=== PATIENT | female | born 1955 | race Caucasian/White ===

== ENCOUNTER 2017-12-30 16:02 | Emergency (ER) | payer OTHER ==
[~2017-12-30] VITALS: Ht 167.6 cm; Wt 37.0 kg
[~2017-12-30 16:02] MED LIST: ACET325 PO; ACET325S PR; ACET500 PO; ACETAMINOPHEN500 MG PO; ALBUIS INH; AMIT25; AMOCLA500 PO; ASPI81CH PO; ATOR20 PO; Acetaminophen-1 EAC2 PO; BELPTAB; CALGLU500; CEPH500 PO; CHOL10002 PO; CIPR500 PO; CLIN150 PO; CLON2; CLON2 PO; CODACE30 PO; Clonazepam2 MG PO; Cyclobenzaprine5 MG PO; DICL25ER PO; DICLOFENAC 50MG; DIPATR PO; DIPH50; DIPH50 PO; DOC250 PO; DOCU100 PO; DOXY100 PO; ESOM20 PO; EYE DROPS; FLUO10 PO; GABA100 PO; HYDACE10; HYDACE10 PO; HYDACE5 PO; HYDACE7.5; HYDACE7.5 PO; HYOS.125 SL; HYOS.125L; K-Dur20 MEQ PO; Keflex500 MG PO; Klonopin1 MG PO; LEVE500 PO; LEVFLO250 PO; LEVFLO500 PO; LEVO750; LIDO5TP TOP; LOPE2C PO; META800 PO; METO10; METO10 PO; METR250 PO; METR500 PO; MIRT30ST; Mobic7.5 MG PO; NORT10; Norco 5-325 Ta1 EACH PO; OLAN5 PO; OMEP20ER PO; ONDA4ODT MM; OXYC10ER; PANT40 PO; PHENY100ER; PHENY100ER PO; PHENY125EA PO; POTCHL20ER; POTCHL20ER PO; PREG75; Phenytoin Sodi100 MG PO; Prozac20 MG PO; Prozac40 MG PO; QUET25 PO; RANI150; RANI150 PO; RISP1 PO; RISP2 PO; RISP3 PO; RXHYDACE PO; RXHYOS.125 PO; SACC250C PO; SENN187 PO; SERT25 PO; SIME80CH PO; SUCR1 PO; SULTRIDS PO; TRAM50 PO; TRAZ50 PO; [UNRECOGNIZED DRUG - REMARK]; [UNRECOGNIZED DRUG - REMARK]; [UNRECOGNIZED DRUG - REMARK] PO
[2017-12-30 16:51] LABS: BASOPHILS ABSOLUTE AUTO 0.08 K/mm3 (0.00-0.23); BASOPHILS PERCENT AUTO 1 % (0-2); EOSINOPHILS PERCENT AUTO 1 % (0-6); Hemoglobin 14.2 g/dL (11.5-16.0); IMMATURE GRAN ABSOLUTE AUTO 0.05 K/mm3 (0.00-0.10); IMMATURE GRAN PERCENT AUTO 1 % (0-1); LYMPHOCYTES ABSOLUTE AUTO 2.76 K/mm3 (0.84-5.20); LYMPHOCYTES PERCENT AUTO 28 % (21-46); MONOCYTES ABSOLUTE AUTO 0.83 K/mm3 (0.16-1.47); MONOCYTES PERCENT AUTO 8 % (4-13); Mean Corpuscular HGB 32.3 pg (26.0-34.0); Mean Corpuscular Volume 98 fL (80-100); NEUTROPHILS ABSOLUTE AUTO 6.05 K/mm3 (1.96-9.15); NEUTROPHILS PERCENT AUTO 61 % (41-73); Platelet Count 402 K/mm3 (150-400); RDW Coefficient Variation 13.6 % (11.7-14.2); RDW Standard Deviation 49.2 fL (35.1-46.3); White Blood Cell Count 9.87 K/mm3 (4.00-11.30)
[2017-12-30] MEDS ORDERED: FLUO10 PO (16:57)
[2017-12-30] MEDS ORDERED: CLON1 PO (16:58)
[2017-12-30 17:10] LABS: Alanine Aminotransfer (ALT/SGP 54 U/L (12-78); Albumin, Blood 3.5 g/dL (3.4-5.0); Albumin/Globulin Ratio 0.9 (0.8-1.8); Alk Phos 161 U/L (50-136); Anion Gap 9 mmol/L (6-16); Aspartate Aminotrans (AST/SGOT 47 U/L (12-37); Bilirubin, Total 0.1 mg/dL (0.1-1.0); Blood Urea Nitrogen 16 mg/dL (8-24); CO2, Blood 27 mmol/L (21-32); Calcium, Blood 9.2 mg/dL (8.5-10.1); Chloride, Blood 104 mmol/L (98-108); Creatinine, Blood 0.62 mg/dL (0.40-1.00); Glomerular Filtration Rate >60 (60-); Glucose, Blood 68 mg/dL (70-99); Potassium, Blood 3.5 mmol/L (3.5-5.5); Sodium, Blood 140 mmol/L (136-145); Total Protein, Blood 7.5 g/dL (6.4-8.2)
== END 2017-12-30 17:19 | disposition home or self-care (01) ==
LOC: ER 16:02
PROVIDERS: Physician Assistant
DX: F41.9 Anxiety disorder, unspecified (principal); Z76.0 Encounter for issue of repeat prescription; J44.9 Chronic obstructive pulmonary disease, unspecified; I67.1 Cerebral aneurysm, nonruptured; R56.9 Unspecified convulsions
CPT/HCPCS: 36415; 80053; 85025; 99283

== ENCOUNTER 2018-01-15 09:41 | Emergency (ER) | payer OTHER ==
[~2018-01-15] VITALS: Ht 167.6 cm; Wt 36.3 kg
[~2018-01-15 09:41] MED LIST changes: +CLON1 PO
[2018-01-15 10:39] LABS: BASOPHILS ABSOLUTE AUTO 0.06 K/mm3 (0.00-0.23); BASOPHILS PERCENT AUTO 1 % (0-2); EOSINOPHILS ABSOLUTE AUTO 0.09 K/mm3 (0.00-0.68); EOSINOPHILS PERCENT AUTO 1 % (0-6); Hematocrit 42.6 % (33.0-51.0); Hemoglobin 13.9 g/dL (11.5-16.0); IMMATURE GRAN ABSOLUTE AUTO 0.04 K/mm3 (0.00-0.10); IMMATURE GRAN PERCENT AUTO 1 % (0-1); LYMPHOCYTES PERCENT AUTO 22 % (21-46); MONOCYTES ABSOLUTE AUTO 0.65 K/mm3 (0.16-1.47); MONOCYTES PERCENT AUTO 8 % (4-13); Mean Corpuscular HGB 31.7 pg (26.0-34.0); Mean Corpuscular HGB Conc 32.6 g/dL (31.5-36.5); Mean Corpuscular Volume 97 fL (80-100); Mean Platelet Volume 9.2 fL (9.1-12.4); NEUTROPHILS ABSOLUTE AUTO 5.62 K/mm3 (1.96-9.15); NEUTROPHILS PERCENT AUTO 68 % (41-73); Platelet Count 376 K/mm3 (150-400); RDW Coefficient Variation 14.3 % (11.7-14.2); Red Blood Cell Count 4.39 M/mm3 (3.80-5.20); White Blood Cell Count 8.26 K/mm3 (4.00-11.30)
[2018-01-15 11:09] LABS: Alanine Aminotransfer (ALT/SGP 53 U/L (12-78); Albumin, Blood 3.2 g/dL (3.4-5.0); Albumin/Globulin Ratio 0.8 (0.8-1.8); Alk Phos 178 U/L (50-136); Anion Gap 5 mmol/L (6-16); Aspartate Aminotrans (AST/SGOT 41 U/L (12-37); Bilirubin, Total 0.3 mg/dL (0.1-1.0); Blood Urea Nitrogen 7 mg/dL (8-24); Bun/Creatinine Ratio 13.3 (12.0-20.0); CO2, Blood 28 mmol/L (21-32); Calcium, Blood 8.2 mg/dL (8.5-10.1); Chloride, Blood 108 mmol/L (98-108); Creatinine, Blood 0.53 mg/dL (0.40-1.00); Globulin, Blood 4.2 g/dL (2.2-4.0); Glomerular Filtration Rate >60 (60-); Glucose, Blood 82 mg/dL (70-99); Potassium, Blood 3.8 mmol/L (3.5-5.5); Sodium, Blood 141 mmol/L (136-145); Total Protein, Blood 7.4 g/dL (6.4-8.2)
[2018-01-15 11:42] LABS: Source, Urine Clean Catch
[2018-01-15 11:45] LABS: Bilirubin, Urine Neg (Neg); Blood, Urine 4+ (Neg); Glucose Qualitative, Urine Neg (Neg); Ketones, Urine Neg (Neg); Leukocyte Esterase, Urine Neg (Neg); Nitrite, Urine Neg (Neg); Protein, Urine Neg (Neg); Urobilinogen, Urine NORM (Normal)
[2018-01-15 11:56] LABS: Appearance, Urine Clear (Clear); Color, Urine Yellow (P-Yellow)
[2018-01-15] MEDS ORDERED: DIPH50 PO (11:56)
[2018-01-15] MEDS ORDERED: OLAN10 (11:57)
[2018-01-15 11:58] LABS: White Blood Cells, Urine 0-2 /hpf (0-5)
[2018-01-15 11:59] LABS: Bacteria Few /hpf; Squamous Epithelial Cells Few /hpf (Few)
[2018-01-15] MEDS ORDERED: Zofran Odt4 MG SL (12:58)
== END 2018-01-15 13:09 | disposition home or self-care (01) ==
LOC: ER 09:41
PROVIDERS: Emergency Medicine
DX: R10.9 Unspecified abdominal pain (principal); K08.89 Other specified disorders of teeth and supporting structures; T43.225A Adverse effect of selective serotonin reuptake inhibitors, initial encounter; F17.200 Nicotine dependence, unspecified, uncomplicated; Z88.6 Allergy status to analgesic agent; G40.909 Epilepsy, unspecified, not intractable, without status epilepticus; M41.9 Scoliosis, unspecified; Z79.899 Other long term (current) drug therapy
CPT/HCPCS: 36415; 80053; 81001; 83690; 85025; 96374; 99283; J2405

== ENCOUNTER → 2018-01-20 | Outpatient (CLI) | payer OTHER ==
[~2018-01-20] MED LIST changes: +OLAN10; +Zofran Odt4 MG SL
[2018-01-20 16:29] LABS: BASOPHILS PERCENT AUTO 1 % (0-2); EOSINOPHILS ABSOLUTE AUTO 0.12 K/mm3 (0.00-0.68); EOSINOPHILS PERCENT AUTO 1 % (0-6); Hematocrit 43.6 % (33.0-51.0); Hemoglobin 14.7 g/dL (11.5-16.0); IMMATURE GRAN ABSOLUTE AUTO 0.02 K/mm3 (0.00-0.10); IMMATURE GRAN PERCENT AUTO 0 % (0-1); LYMPHOCYTES ABSOLUTE AUTO 2.27 K/mm3 (0.84-5.20); LYMPHOCYTES PERCENT AUTO 24 % (21-46); MONOCYTES ABSOLUTE AUTO 0.69 K/mm3 (0.16-1.47); MONOCYTES PERCENT AUTO 7 % (4-13); Mean Corpuscular HGB 32.6 pg (26.0-34.0); Mean Corpuscular HGB Conc 33.7 g/dL (31.5-36.5); Mean Corpuscular Volume 97 fL (80-100); Mean Platelet Volume 9.5 fL (9.1-12.4); NEUTROPHILS ABSOLUTE AUTO 6.14 K/mm3 (1.96-9.15); NEUTROPHILS PERCENT AUTO 66 % (41-73); Platelet Count 454 K/mm3 (150-400); RDW Coefficient Variation 14.9 % (11.7-14.2); RDW Standard Deviation 53.6 fL (35.1-46.3); Red Blood Cell Count 4.51 M/mm3 (3.80-5.20); White Blood Cell Count 9.34 K/mm3 (4.00-11.30)
[2018-01-20 16:39] LABS: Alanine Aminotransfer (ALT/SGP 52 U/L (12-78); Albumin, Blood 3.6 g/dL (3.4-5.0); Albumin/Globulin Ratio 0.9 (0.8-1.8); Alk Phos 167 U/L (40-126); Anion Gap 10 mmol/L (6-16); Aspartate Aminotrans (AST/SGOT 37 U/L (12-37); Bilirubin, Total 0.3 mg/dL (0.1-1.0); Blood Urea Nitrogen 10 mg/dL (8-24); Bun/Creatinine Ratio 17.2 (12.0-20.0); CO2, Blood 29 mmol/L (21-32); Calcium, Blood 8.8 mg/dL (8.5-10.1); Chloride, Blood 103 mmol/L (98-108); Creatinine, Blood 0.58 mg/dL (0.40-1.00); Glomerular Filtration Rate >60 (60-); Glucose, Blood 89 mg/dL (70-99); Potassium, Blood 3.6 mmol/L (3.5-5.5); Sodium, Blood 142 mmol/L (136-145); Total Protein, Blood 7.6 g/dL (6.4-8.2)
== END | disposition home or self-care (01) ==
LOC: LAB EV 16:24
PROVIDERS: Physician Assistant
DX: K14.0 Glossitis (principal)
CPT/HCPCS: 80053; 82607; 82746; 85025

== ENCOUNTER → 2018-08-28 | Outpatient (CLI) | payer OTHER ==
[2018-08-28 17:22] LABS: Appearance, Urine Clear (Clear); Bilirubin, Urine Neg (Neg); Blood, Urine 4+ (Neg); Color, Urine Yellow (P-Yellow); Glucose Qualitative, Urine Neg (Neg); Ketones, Urine Neg (Neg); Leukocyte Esterase, Urine 2+ (Neg); Nitrite, Urine Neg (Neg); Protein, Urine Neg (Neg); Urobilinogen, Urine NORM (Normal)
[2018-08-28 17:57] LABS: Bacteria Few /hpf; Squamous Epithelial Cells Few /hpf (Few)
== END ==
LOC: LAB SHORT 15:22 → LAB SRC 15:22
PROVIDERS: Nurse Practitioner Family
DX: R10.9 Unspecified abdominal pain (principal)
CPT/HCPCS: 81001; 87077; 87086; 87186

== ENCOUNTER 2019-05-28 19:13 | Emergency (ER) | payer OTHER ==
[~2019-05-28] VITALS: Ht 167.6 cm; Wt 43.1 kg
[2019-05-28] MEDS ORDERED: Cyclobenzaprine5 MG PO (20:42)
[2019-05-28] MEDS ORDERED: IBUP800 PO (20:42)
== END 2019-05-28 20:53 | disposition home or self-care (01) ==
LOC: ER 19:13
DX: M54.5 Low back pain (principal); G89.29 Other chronic pain; Z88.6 Allergy status to analgesic agent; Z79.899 Other long term (current) drug therapy; F17.200 Nicotine dependence, unspecified, uncomplicated
CPT/HCPCS: 96372; 99283-25; J1885

== ENCOUNTER 2019-06-03 09:37 | Emergency (ER) | payer OTHER ==
[~2019-06-03] VITALS: Ht 167.6 cm; Wt 44.5 kg
[~2019-06-03 09:37] MED LIST changes: +IBUP800 PO
[2019-06-03 10:21] LABS: Hematocrit 44.9 % (33.0-51.0); Hemoglobin 14.1 g/dL (11.5-16.0); Mean Corpuscular HGB 33.2 pg (26.0-34.0); Mean Corpuscular HGB Conc 31.4 g/dL (31.5-36.5); Mean Corpuscular Volume 106 fL (80-100); Mean Platelet Volume 10.1 fL (9.1-12.4); Platelet Count 268 K/mm3 (150-400); RDW Coefficient Variation 14.3 % (11.7-14.2); RDW Standard Deviation 56.6 fL (35.1-46.3); Red Blood Cell Count 4.25 M/mm3 (3.80-5.20); White Blood Cell Count 5.79 K/mm3 (4.00-11.30)
[2019-06-03 10:29] LABS: Anion Gap 4 mmol/L (6-16); Blood Urea Nitrogen 6 mg/dL (8-24); Bun/Creatinine Ratio 7.5 (12.0-20.0); CO2, Blood 27 mmol/L (21-32); Calcium, Blood 8.7 mg/dL (8.5-10.1); Chloride, Blood 110 mmol/L (98-108); Creatinine, Blood 0.81 mg/dL (0.40-1.00); Glomerular Filtration Rate >60 (60-); Glucose, Blood 77 mg/dL (70-99); Potassium, Blood 4.6 mmol/L (3.5-5.5); Sodium, Blood 141 mmol/L (136-145)
[2019-06-03] MEDS ORDERED: COMPAZINE10 MG PO (10:40)
[2019-06-03] MEDS ORDERED: Lomotil Tablet1 EACH PO (10:40)
== END 2019-06-03 10:45 | disposition home or self-care (01) ==
LOC: ER 09:37
PROVIDERS: Emergency Medicine
DX: R11.2 Nausea with vomiting, unspecified (principal); R19.7 Diarrhea, unspecified; J44.9 Chronic obstructive pulmonary disease, unspecified; F41.9 Anxiety disorder, unspecified
CPT/HCPCS: 80048; 85027; 96374; 99284-25; J2405; J7030

== ENCOUNTER 2019-08-21 09:33 | Emergency (ER) | payer OTHER ==
[~2019-08-21] VITALS: Ht 157.5 cm; Wt 52.2 kg
[~2019-08-21 09:33] MED LIST changes: +COMPAZINE10 MG PO; +Lomotil Tablet1 EACH PO
[2019-08-21] MEDS ORDERED: DIBU30TO PR (10:14)
[2019-08-21] MEDS ORDERED: PRAHYD1AE TOP (10:14)
[2019-08-21] MEDS ORDERED: HYDACE25S PR (10:14)
== END 2019-08-21 10:35 | disposition home or self-care (01) ==
LOC: ER 09:33
DX: K64.4 Residual hemorrhoidal skin tags (principal); F41.9 Anxiety disorder, unspecified; J44.9 Chronic obstructive pulmonary disease, unspecified; M19.90 Unspecified osteoarthritis, unspecified site; F17.200 Nicotine dependence, unspecified, uncomplicated; Z88.6 Allergy status to analgesic agent; Z79.899 Other long term (current) drug therapy
CPT/HCPCS: 99283

== ENCOUNTER 2019-08-23 12:28 | Emergency (ER) | payer OTHER ==
[~2019-08-23] VITALS: Ht 167.6 cm; Wt 44.5 kg
[~2019-08-23 12:28] MED LIST changes: +DIBU30TO PR; +HYDACE25S PR; +PRAHYD1AE TOP
[2019-08-23] MEDS ORDERED: Colace100 MG PO (18:50)
== END 2019-08-23 19:03 | disposition home or self-care (01) ==
LOC: ER 12:28
DX: K59.00 Constipation, unspecified (principal); K64.9 Unspecified hemorrhoids; F17.200 Nicotine dependence, unspecified, uncomplicated; Z88.8 Allergy status to other drugs, medicaments and biological substances; Z79.899 Other long term (current) drug therapy
CPT/HCPCS: 96372; 99283-25; J1885

== ENCOUNTER 2020-12-18 09:51 | Emergency (ER) | payer OTHER ==
[~2020-12-18] VITALS: Ht 157.5 cm; Wt 40.8 kg
[~2020-12-18 09:51] MED LIST changes: +AIRDUO RESPICL1 EAC4 INH; +ALBU90OI INH; +BUSP5 PO; +BUSPIRONE HCL7.5 MG PO; +CITA20 PO; +Colace100 MG PO; +DELTASONE20 MG PO; +DILT120 PO; +FURO40 PO; +OLANZAPINE20 M1 PO; +PROBIOTIC250 MG PO; +PROZAC20 MG PO; +ZYPREXA PO
== END 2020-12-18 11:40 | disposition home or self-care (01) ==
LOC: ER 09:51
DX: M79.604 Pain in right leg (principal); F17.210 Nicotine dependence, cigarettes, uncomplicated; Z87.828 Personal history of other (healed) physical injury and trauma; Z96.7 Presence of other bone and tendon implants; Z79.899 Other long term (current) drug therapy; Z79.82 Long term (current) use of aspirin
CPT/HCPCS: 99283

== ENCOUNTER 2020-12-28 08:26 | Emergency (ER) | payer OTHER ==
[~2020-12-28] VITALS: Ht 167.6 cm; Wt 41.7 kg
[2020-12-28] MEDS ORDERED: ACETAMINOPHEN500 MG PO (10:39)
[2020-12-28] MEDS ORDERED: TRAM50 PO (10:39)
== END 2020-12-28 11:35 | disposition home or self-care (01) ==
LOC: ER 08:26
DX: S20.211A Contusion of right front wall of thorax, initial encounter (principal); F17.210 Nicotine dependence, cigarettes, uncomplicated; Z87.81 Personal history of (healed) traumatic fracture; Z88.2 Allergy status to sulfonamides; Z79.899 Other long term (current) drug therapy; W10.9XXA Fall (on) (from) unspecified stairs and steps, initial encounter
CPT/HCPCS: 71046; 73590; 94640; 99283-25; A9270

== ENCOUNTER 2021-01-01 13:48 | Emergency (ER) | payer OTHER ==
[~2021-01-01] VITALS: Ht 167.6 cm; Wt 41.7 kg
[2021-01-01 14:42] LABS: BASOPHILS ABSOLUTE AUTO 0.06 K/mm3 (0.00-0.23); BASOPHILS PERCENT AUTO 1 % (0-2); EOSINOPHILS ABSOLUTE AUTO 0.16 K/mm3 (0.00-0.68); EOSINOPHILS PERCENT AUTO 2 % (0-6); Hematocrit 40.2 % (33.0-51.0); Hemoglobin 13.1 g/dL (11.5-16.0); IMMATURE GRAN ABSOLUTE AUTO 0.01 K/mm3 (0.00-0.10); IMMATURE GRAN PERCENT AUTO 0 % (0-1); LYMPHOCYTES ABSOLUTE AUTO 2.22 K/mm3 (0.84-5.20); LYMPHOCYTES PERCENT AUTO 32 % (21-46); MONOCYTES ABSOLUTE AUTO 0.83 K/mm3 (0.16-1.47); MONOCYTES PERCENT AUTO 12 % (4-13); Mean Corpuscular HGB 31.7 pg (26.0-34.0); Mean Corpuscular HGB Conc 32.6 g/dL (31.5-36.5); Mean Corpuscular Volume 97 fL (80-100); NEUTROPHILS ABSOLUTE AUTO 3.76 K/mm3 (1.96-9.15); NEUTROPHILS PERCENT AUTO 53 % (41-73); Platelet Count 346 K/mm3 (150-400); RDW Coefficient Variation 13.4 % (11.7-14.2); RDW Standard Deviation 48.1 fL (35.1-46.3); Red Blood Cell Count 4.13 M/mm3 (3.80-5.20); White Blood Cell Count 7.04 K/mm3 (4.00-11.30)
[2021-01-01 15:07] LABS: Alanine Aminotransfer (ALT/SGP 25 U/L (12-78); Albumin, Blood 2.8 g/dL (3.4-5.0); Albumin/Globulin Ratio 0.7 (0.8-1.8); Alk Phos 350 U/L (50-136); Anion Gap 7 mmol/L (6-16); Aspartate Aminotrans (AST/SGOT 31 U/L (12-37); Bilirubin, Total 0.2 mg/dL (0.1-1.0); Blood Urea Nitrogen 10 mg/dL (8-24); Bun/Creatinine Ratio 20.6 (12.0-20.0); CO2, Blood 29 mmol/L (21-32); Calcium, Blood 8.4 mg/dL (8.5-10.1); Chloride, Blood 108 mmol/L (98-108); Creatinine, Blood 0.49 mg/dL (0.40-1.00); Globulin, Blood 4.3 g/dL (2.2-4.0); Glomerular Filtration Rate >60 (60-); Glucose, Blood 94 mg/dL (70-99); Potassium, Blood 3.3 mmol/L (3.5-5.5); Sodium, Blood 144 mmol/L (136-145); Total Protein, Blood 7.1 g/dL (6.4-8.2)
[2021-01-01] MEDS ORDERED: CEPH500 PO ×2 (17:13→17:33)
== END 2021-01-01 17:45 | disposition home or self-care (01) ==
LOC: ER 13:48
PROVIDERS: Physician Assistant
DX: T84.7XXA Infection and inflammatory reaction due to other internal orthopedic prosthetic devices, implants and grafts, initial encounter (principal); L03.115 Cellulitis of right lower limb; J44.9 Chronic obstructive pulmonary disease, unspecified; F17.200 Nicotine dependence, unspecified, uncomplicated; Z88.6 Allergy status to analgesic agent; Z79.899 Other long term (current) drug therapy
CPT/HCPCS: 36415; 73590; 80053; 85025; 96374; 99284-25; J1885

== ENCOUNTER → 2021-01-19 | Outpatient (CLI) | payer OTHER | END | disposition home or self-care (01) | LOC: LAB SRC 07:30 → LAB SHORT 07:30 | DX: T84.7XXA Infection and inflammatory reaction due to other internal orthopedic prosthetic devices, implants and grafts, initial encounter (principal) | CPT/HCPCS: 87070; 87075; 87077; 87205 ==

== ENCOUNTER → 2021-02-01 | Outpatient (CLI) | payer OTHER | END | disposition home or self-care (01) | LOC: LAB SHORT 16:00 → LAB SRC 16:00 → LAB 16:00 | DX: R31.9 Hematuria, unspecified (principal); R30.9 Painful micturition, unspecified | CPT/HCPCS: 87077; 87086; 87186 ==

== ENCOUNTER → 2021-08-18 | Outpatient (CLI) | payer OTHER ==
[2021-08-18 12:22] LABS: BASOPHILS ABSOLUTE AUTO 0.05 K/mm3 (0.00-0.23); BASOPHILS PERCENT AUTO 1 % (0-2); EOSINOPHILS ABSOLUTE AUTO 0.05 K/mm3 (0.00-0.68); EOSINOPHILS PERCENT AUTO 1 % (0-6); Hematocrit 43.8 % (33.0-51.0); Hemoglobin 14.6 g/dL (11.5-16.0); IMMATURE GRAN ABSOLUTE AUTO 0.01 K/mm3 (0.00-0.10); IMMATURE GRAN PERCENT AUTO 0 % (0-1); LYMPHOCYTES PERCENT AUTO 28 % (21-46); MONOCYTES ABSOLUTE AUTO 0.56 K/mm3 (0.16-1.47); MONOCYTES PERCENT AUTO 10 % (4-13); Mean Corpuscular HGB 33.4 pg (26.0-34.0); Mean Corpuscular HGB Conc 33.3 g/dL (31.5-36.5); Mean Corpuscular Volume 100 fL (80-100); NEUTROPHILS ABSOLUTE AUTO 3.53 K/mm3 (1.96-9.15); NEUTROPHILS PERCENT AUTO 61 % (41-73); Platelet Count 332 K/mm3 (150-400); RDW Coefficient Variation 13.2 % (11.7-14.2); RDW Standard Deviation 49.8 fL (35.1-46.3); Red Blood Cell Count 4.37 M/mm3 (3.80-5.20)
[2021-08-18 12:39] LABS: Anion Gap 11 mmol/L (6-16); Blood Urea Nitrogen 9 mg/dL (8-24); Bun/Creatinine Ratio 16.4 (12.0-20.0); CO2, Blood 27 mmol/L (21-32); Calcium, Blood 9.1 mg/dL (8.5-10.1); Chloride, Blood 107 mmol/L (98-108); Creatinine, Blood 0.55 mg/dL (0.40-1.00); Glomerular Filtration Rate >60 (60-); Glucose, Blood 94 mg/dL (70-99); Potassium, Blood 3.9 mmol/L (3.5-5.5); Sodium, Blood 145 mmol/L (136-145); Thyroid Stimulating Hormone 0.555 uIU/mL (0.360-4.800)
== END | disposition home or self-care (01) ==
LOC: LAB 12:15 → LAB SHORT 12:15
PROVIDERS: Physician Assistant Surgical
DX: R51.9 Headache, unspecified (principal); R53.83 Other fatigue
CPT/HCPCS: 80048; 84443; 85025

== ENCOUNTER 2023-04-04 16:09 | Inpatient (IN) | payer OTHER ==
[~2023-04-04] VITALS: Ht 152.4 cm; Wt 40.8 kg
[2023-04-04] MEDS ORDERED: PROZAC2010 PO (16:23)
[2023-04-04 17:18] LABS: BASOPHILS ABSOLUTE AUTO 0.02 K/mm3 (0.00-0.23); BASOPHILS PERCENT AUTO 0 % (0-2); EOSINOPHILS ABSOLUTE AUTO 0.05 K/mm3 (0.00-0.68); EOSINOPHILS PERCENT AUTO 1 % (0-6); Hematocrit 41.7 % (33.0-51.0); IMMATURE GRAN ABSOLUTE AUTO 0.04 K/mm3 (0.00-0.10); IMMATURE GRAN PERCENT AUTO 1 % (0-1); LYMPHOCYTES ABSOLUTE AUTO 1.23 K/mm3 (0.84-5.20); LYMPHOCYTES PERCENT AUTO 17 % (21-46); MONOCYTES ABSOLUTE AUTO 0.61 K/mm3 (0.16-1.47); MONOCYTES PERCENT AUTO 8 % (4-13); Mean Corpuscular HGB 32.5 pg (26.0-34.0); Mean Corpuscular HGB Conc 33.6 g/dL (31.5-36.5); Mean Corpuscular Volume 97 fL (80-100); Mean Platelet Volume 9.7 fL (9.1-12.4); NEUTROPHILS ABSOLUTE AUTO 5.46 K/mm3 (1.96-9.15); NEUTROPHILS PERCENT AUTO 74 % (41-73); Platelet Count 274 K/mm3 (150-400); RDW Coefficient Variation 13.6 % (11.7-14.2); RDW Standard Deviation 48.8 fL (35.1-46.3); Red Blood Cell Count 4.31 M/mm3 (3.80-5.20); White Blood Cell Count 7.41 K/mm3 (4.00-11.30)
[2023-04-04 17:28] LABS: Source, Urine Straight Cath
[2023-04-04 17:37] LABS: Albumin/Globulin Ratio 0.8 (0.8-1.8); Bilirubin, Total 0.4 mg/dL (0.1-1.0); Bun/Creatinine Ratio 17.7 (12.0-20.0); Creatinine, Blood 0.51 mg/dL (0.40-1.00); Globulin, Blood 3.9 g/dL (2.2-4.0); Potassium, Blood 3.5 mmol/L (3.5-5.5); Total Protein, Blood 6.9 g/dL (6.4-8.2)
[2023-04-04 17:40] LABS: Bilirubin, Urine Neg (Neg); Blood, Urine 1+ (Neg); Color, Urine Yellow (P-Yellow); Glucose Qualitative, Urine Neg (Neg); Ketones, Urine 1+ (Neg); Leukocyte Esterase, Urine 1+ (Neg); Nitrite, Urine Neg (Neg); Protein, Urine 1+ (Neg); Urobilinogen, Urine 2+ (Normal)
[2023-04-04 17:49] LABS: Appearance, Urine Hazy (Clear)
[2023-04-04 17:52] LABS: Amorphous Light (0-Heavy); Bacteria Mod /hpf; Hyaline Casts 0-2 /lpf (0-2); Mucus Heavy (0-Heavy); Squamous Epithelial Cells Rare /hpf (Few); White Blood Cells, Urine 0-2 /hpf (0-5)
[2023-04-04 17:53] LABS: U Amphetamine Screen Not Detected; U Barbituate Screen Not Detected; U Benzodiazapine Screen DETECTED; U Buprenorphine Screen Not Detected; U Cannabinoids Screen Not Detected; U Cocaine Screen Not Detected; U Methadone Screen Not Detected; U Methamphetamine Screen Not Detected; U Opiates Screen Not Detected; U Oxycodone Screen Not Detected; U Phencyclidine Screen Not Detected; U Propoxyphene Screen Not Detected
[2023-04-04 20:21] LABS: Dilantin (Phenytoin), Total <0.4 ug/mL (10.0-20.0)
[2023-04-04 20:40] LABS: Influenza A, PCR NEGATIVE (NEGATIVE); Influenza B, PCR NEGATIVE (NEGATIVE); Resp Syncytial Virus, PCR NEGATIVE (NEGATIVE)
[2023-04-04 20:58] LABS: Adenovirus Detected (NOT DETECT); Coronavirus 229E Not Detected (NOT DETECT); Coronavirus HKU1 Not Detected (NOT DETECT); Coronavirus NL63 Not Detected (NOT DETECT); Coronavirus OC43 Not Detected (NOT DETECT); Human Metapneumovirus Not Detected (NOT DETECT); Human Rhinovirus/Enterovirus Not Detected (NOT DETECT); Influenza A/2009-H1 Not Detected (NOT DETECT); Influenza A/H1 Not Detected (NOT DETECT); Influenza A/H3 Not Detected (NOT DETECT); Influenza B Not Detected (NOT DETECT); Parainfluenza Virus 1 Not Detected (NOT DETECT); Parainfluenza Virus 2 Not Detected (NOT DETECT); Parainfluenza Virus 3 Not Detected (NOT DETECT); SARS-Cov-2 (COVID-19), BioFire Detected (NOT DETECT)
[2023-04-04 20:59] LABS: Bordetella pertussis Not Detected (NOT DETECT); Chlamydophila pneumoniae Not Detected (NOT DETECT); Mycoplasma pneumoniae Not Detected (NOT DETECT); Parainfluenza Virus 4 Not Detected (NOT DETECT); Respiratory Syncytial Virus Not Detected (NOT DETECT)
[2023-04-04 21:14] VITALS: BP 151/107
[2023-04-05 00:45] LABS: SARS-Cov-2 (COVID-19) PCR, MMC POSITIVE (NEGATIVE)
[2023-04-05 05:21] VITALS: BP 117/81
[2023-04-05 05:37] LABS: Hematocrit 41.4 % (33.0-51.0); Hemoglobin 13.5 g/dL (11.5-16.0); Mean Corpuscular HGB Conc 32.6 g/dL (31.5-36.5); Mean Corpuscular Volume 98 fL (80-100); Mean Platelet Volume 9.7 fL (9.1-12.4); Platelet Count 289 K/mm3 (150-400); RDW Coefficient Variation 13.7 % (11.7-14.2); RDW Standard Deviation 49.8 fL (35.1-46.3); Red Blood Cell Count 4.22 M/mm3 (3.80-5.20); White Blood Cell Count 6.03 K/mm3 (4.00-11.30)
--- NOTE | 2023-04-05 05:59 | NUR ---
SUMMARY: PATIENT AOX1. AGITATED AND COMBATIVE FOR CARE. COVID POSITIVE. ISOLATION IN PLACE. PATIENT ON 2L NC. BED ALARM ON AND CAMERA MONITOR IN PLACE PATIENT WAS PULLING LINES AND ATTEMPTING OOB UNSAFELY. INCONTINENT OF URINE. SEIZURE PADS IN PLACE. PATIENT NOT FOLLOWING COMMANDS TO TAKE MEDICATION BEFORE BED. IV FLUIDS RUNNING.
[2023-04-05 06:06] LABS: Bun/Creatinine Ratio 9.3 (12.0-20.0); Calcium, Blood 8.2 mg/dL (8.5-10.1); Creatinine, Blood 0.54 mg/dL (0.40-1.00); Potassium, Blood 3.5 mmol/L (3.5-5.5)
[2023-04-05 07:15] VITALS: BP 144/90
[2023-04-05] MEDS ORDERED: VOLTAREN ARTHRI20 GM TOP (12:09)
[2023-04-05 15:26] VITALS: BP 161/93
--- NOTE | 2023-04-05 16:58 | NUR ---
PATIENT SLEPT MOST OF THE DAY. NOT AGITATED OR COMABATIVE THIS SHIFT. A/OX2-3, REMAINS IMPULSIVE. VERY DROWSY TODAY AND VERY LITTLE PO INTAKE. NS INFUSING AT 125/HR. PATIENT CONTINENT/INCONTINENT OF URINE. 2LO2 TO MAINTAIN SATS, SCHEDULED RT TREATMENTS. NO NEW CONCERNS THIS SHIFT.
[2023-04-05 19:42] VITALS: BP 145/91
[2023-04-06 02:30] VITALS: BP 131/69
[2023-04-06 05:37] LABS: Base Excess Venous -0.3 mmol/L; PCO2 Venous 44.6 mmHg (38-42); pH Blood Venous 7.36 (7.34-7.37)
--- NOTE | 2023-04-06 06:09 | NUR ---
SUMMARY: NO ACUTE EVENTS OVERNIGHT. PATIENT VERY PLEASANTLY CONFUSED. COOPERATIVE WITH ALL CARE. ON 2L NC. TYLENOL GIVEN FOR HEADACHE AND BODY ACHES. IV FLUIDS RUNNING.
[2023-04-06 07:19] VITALS: BP 128/73
[2023-04-06 15:27] VITALS: BP 107/92
--- NOTE | 2023-04-06 17:35 | NUR ---
SHIFT SUMMARY PT CALM AND COOPERATIVE WITH CARE TODAY. AOX3 WITH COMPLAINTS OF HEADACHE AND BACKPAIN. TYLENOL NOT WORKING WELL FOR PAIN. ORDERED TRAMADOL. CURRENTLY ON 2L OF O2 VIA NC. PT UP TO BEDSIDE COMMODE WITH NURSE STANDBY. FORGETS LIMITATIONS AND WILL GET UP WITHOUT ASSISTANCE. BED ALARM AND CAMERA ON. FALL PREVENTION MEASURES IN PLACE. VSS. PT's NEIGHBOR WORKING WITH CASE MANAGEMENT ON POSSIBLE GAURDIANSHIP. PT IS COVID POSITIVE. USES CALL LIGHT APPROPRIATELY
--- NOTE | 2023-04-06 18:41 | NUR ---
REVIEWED NOTES AND ASSESSMENTS DOCUMENTED BY SONI, STUDENT NURSE AND AGREE WITH HER FINDINGS FOR THIS PATIENT.
[2023-04-06 21:01] VITALS: BP 128/106
--- NOTE | 2023-04-07 04:02 | NUR ---
ELECTROPHYSIOLOGIST SUMMARY BP ELEVATED EARLIER, OTHERWISE VSS. ALERT TO QUESTIONS ASKED. TALKATIVE WHEN STAFF IN ROOM. REQUESTED AND RECEIVED ANALGESICS FOR INTERMITTENT PAIN. MEDS EFFECTIVE. LUNG SOUNDS DIMINISHED TO AUSCULTATION. HAS BEEN RESTING QUIETLY WITH FEW INTERUPTIONS OTHER THAN AFORE MENTIONED. ISOLATION PRECAUTIONS FOR COVID CONTINUES. LAB REPORTED ONE CASE OF GRAM POSITIVE COCCI IN CLUSTERS. NOTIFIED, BUT IT WAS ONLY ONE, WILL WAIT FOR POSSIBLE SECOND DRAW. CALL LIGHT IN REACH. ON CAMERA FOR SAFETY
--- NOTE | 2023-04-07 04:36 | NUR ---
NOTED 2 BLD DRAWS DRAWN APRIL 04. ONE AT 1709 AND ANOTHER AT 1710. ONE WAS NEGATIVE AND THE OTHER WAS GM POS COCCI CLUSTERS. MD NOTIFIED AND DID NOT ORDER ABX PT REMAINS AFEBRILE. WILL CONT TO MONITOR
[2023-04-07 04:45] VITALS: BP 165/90
[2023-04-07 05:24] LABS: Base Excess Venous 7.6 mmol/L; Bicarbonate Venous 30.3 mmol/L (24.0-30.0); pH Blood Venous 7.43 (7.34-7.37)
[2023-04-07 05:53] LABS: BASOPHILS ABSOLUTE AUTO 0.01 K/mm3 (0.00-0.23); BASOPHILS PERCENT AUTO 0 % (0-2); EOSINOPHILS ABSOLUTE AUTO 0.06 K/mm3 (0.00-0.68); EOSINOPHILS PERCENT AUTO 1 % (0-6); Hematocrit 34.6 % (33.0-51.0); Hemoglobin 11.6 g/dL (11.5-16.0); IMMATURE GRAN ABSOLUTE AUTO 0.01 K/mm3 (0.00-0.10); IMMATURE GRAN PERCENT AUTO 0 % (0-1); LYMPHOCYTES ABSOLUTE AUTO 1.18 K/mm3 (0.84-5.20); LYMPHOCYTES PERCENT AUTO 20 % (21-46); MONOCYTES ABSOLUTE AUTO 0.57 K/mm3 (0.16-1.47); MONOCYTES PERCENT AUTO 10 % (4-13); Mean Corpuscular HGB 32.8 pg (26.0-34.0); Mean Corpuscular HGB Conc 33.5 g/dL (31.5-36.5); Mean Corpuscular Volume 98 fL (80-100); Mean Platelet Volume 9.7 fL (9.1-12.4); NEUTROPHILS ABSOLUTE AUTO 4.06 K/mm3 (1.96-9.15); NEUTROPHILS PERCENT AUTO 69 % (41-73); Platelet Count 259 K/mm3 (150-400); RDW Coefficient Variation 13.4 % (11.7-14.2); RDW Standard Deviation 48.3 fL (35.1-46.3); Red Blood Cell Count 3.54 M/mm3 (3.80-5.20); White Blood Cell Count 5.89 K/mm3 (4.00-11.30)
[2023-04-07 06:16] LABS: Bun/Creatinine Ratio 13.9 (12.0-20.0); Calcium, Blood 8.5 mg/dL (8.5-10.1); Creatinine, Blood 0.65 mg/dL (0.40-1.00); Magnesium, Blood 1.9 mg/dL (1.6-2.4); Potassium, Blood 3.4 mmol/L (3.5-5.5)
[2023-04-07 08:01] VITALS: BP 135/76
[2023-04-07] MEDS ORDERED: ALBU2.5V5 INH (12:08)
--- NOTE | 2023-04-07 18:23 | NUR ---
DISCHARGE PATIENT AT 1822 [facility], STATED UNDERSTANDING, LIMITATION ARE HEARING AND EYE SIGHT
== END 2023-04-07 18:26 | disposition home health service (06) | DRG 91 ==
LOC: ER 16:09 → MEDS 16:10 → ENPENDDIS 04-07 10:45 → EDPENDDIS 04-07 10:45 → MEDS 04-07 18:26
PROVIDERS: Internal Medicine; Nurse Practitioner Acute Care; Student in an Organized Health Care Education/Training Program; ADMIT Student in an Organized Health Care Education/Training Program
DX: G92.8 Other toxic encephalopathy (principal); J12.82 Pneumonia due to coronavirus disease 2019; U07.1 COVID-19; J44.0 Chronic obstructive pulmonary disease with (acute) lower respiratory infection; J44.1 Chronic obstructive pulmonary disease with (acute) exacerbation; E87.0 Hyperosmolality and hypernatremia; E87.1 Hypo-osmolality and hyponatremia; J96.12 Chronic respiratory failure with hypercapnia; E86.0 Dehydration; G40.909 Epilepsy, unspecified, not intractable, without status epilepticus; T42.4X5A Adverse effect of benzodiazepines, initial encounter; F20.9 Schizophrenia, unspecified; B97.0 Adenovirus as the cause of diseases classified elsewhere; I67.1 Cerebral aneurysm, nonruptured; M19.90 Unspecified osteoarthritis, unspecified site; G89.29 Other chronic pain; R51.9 Headache, unspecified; F41.9 Anxiety disorder, unspecified; F17.210 Nicotine dependence, cigarettes, uncomplicated; Z96.698 Presence of other orthopedic joint implants; Z99.81 Dependence on supplemental oxygen; Z90.710 Acquired absence of both cervix and uterus; Z90.49 Acquired absence of other specified parts of digestive tract; Z79.2 Long term (current) use of antibiotics; Z98.890 Other specified postprocedural states; Z88.6 Allergy status to analgesic agent; Z79.899 Other long term (current) drug therapy
CPT/HCPCS: 0202U; 0241U; 36415; 70450; 71045; 80048; 80053; 80185; 81001; 82140; 82550; 82803; 83605; 83735; 84145; 85025; 85027; 87040; 87086; 93005; 93010; 94640; 94664; 94760; 96361; 96365; 96366; 96372; 96375; 99285-25; A9270; G0378; J0456; J0696; J1650; J1940; J2060; J7030; J7050